=== PATIENT | female | born 1975 | race Caucasian/White ===

== ENCOUNTER 2018-01-07 20:16 | Emergency (ER) | payer SELFPAY ==
[2018-01-07 20:27] VITALS: BP 135/89
--- NOTE | 2018-01-07 20:38 | ED Physician Documentation ---
General Adult - HISTORIAN Historian: patient - HPI Stated Complaint: Noticed pain to Rt Lateral/Posterior chest near armpit Chief Complaint: General Adult Onset: days ago (3) Timing: still present Severity: moderate Further Comments: yes (Pt is a 42 yo female with a linear rash on her R flank, below her axilla and around to her back. 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 Pt has been using Triple Antibiotic on it, but this has not had an effect. She has also used topical lidocaine, but this has not helped. Pt says the pain feels like it's deep.) - ROS CONST: no problems EYES/ENT: none CVS/RESP: none GI/: none MS/SKIN/LYMPH: other (linear rash R flank) - PAST HX Past History: none Allergies/Adverse Reactions: Allergies Allergy/AdvReac Type Severity Reaction Status Date / Time Cephalosporins Allergy Verified 01/07/18 20:28 Penicillins Allergy Verified 01/07/18 20:28 tramadol Allergy Verified 01/07/18 20:28 Home Medications: Ambulatory Orders Medication Instructions Recorded NK [NK] 01/07/18 - SOCIAL HX Smoking History: non-smoker - FAMILY HX Family History: No - VITAL SIGNS Vital Signs: Vital Signs Temp Pulse Resp BP Pulse Ox 98.5 F 98 H 16 135/89 96 01/07/18 20:16 01/07/18 20:16 01/07/18 20:16 01/07/18 20:16 01/07/18 20:16 - REVIEWED ASSESSMENTS Nursing Assessment Reviewed: Yes Vitals Reviewed: Yes Progress - Progress Progress: possible shingles Rx Valacyclovir 1000 mg. Take one every 8 hrs for 7 days. General Adult Physical Exam - PHYSICAL EXAM GENERAL APPEARANCE: no distress EENT: pharynx normal NECK: normal inspection, supple RESPIRATORY: no resp distress, chest non-tender CVS: reg rate & rhythm, heart sounds normal BACK: normal inspection, no CVA tenderness SKIN: other (linear rash R flank under R axilla and around to [place] with pustules) EXTREMITIES: non-tender, normal range of motion, no evidence of injury, no edema NEURO: oriented X3, motor nml, sensation nml Discharge Clincal Impression: possible shingles Referrals: Primary Doctor,No [Primary Care Provider] - Condition: Stable Disposition: 01 HOME, SELF-CARE Decision to Admit: NO Decision Time: 20:49
== END 2018-01-07 20:40 | disposition home or self-care (01) ==
LOC: ED 20:16
DX: R21 Rash and other nonspecific skin eruption (principal)
CPT/HCPCS: 99282

== ENCOUNTER 2018-08-25 08:55 | Emergency (ER) | payer SELFPAY ==
--- NOTE | 2018-08-25 09:02 | ED Physician Documentation ---
Foot Injury - HISTORIAN Historian: patient - HPI Stated Complaint: right foot pain and toe deformity Chief Complaint: Foot Injury Onset: minutes (30) Where: home Severity: mild Context: other ("stubbed" ) Associated Symptoms:: unable to bear weight Modifying Factors:: pain on movement Further Comments: yes (She reports "stubbing" her today prior to arrival. 3rd digit on right foot with deformity. She has feeling to her foot and toe. Unable to move right 3rd digit toe.) - ROS CONST: no problems - PAST HX Past History: none Immunizations: UTD Allergies/Adverse Reactions: Allergies Allergy/AdvReac Type Severity Reaction Status Date / Time Cephalosporins Allergy Verified 08/25/18 09:23 Penicillins Allergy Verified 08/25/18 09:23 tramadol Allergy Verified 08/25/18 09:23 Home Medications: Ambulatory Orders Medication Instructions Recorded HYDROcodone /APAP 5/325 [Lodi 1 each PO Q4 #20 tablet 08/25/18 5/325] - SOCIAL HX Smoking History: non-smoker Alcohol Use: none Drug Use: none - FAMILY HX Family History: none - VITAL SIGNS Vital Signs: Vital Signs Temp Pulse Resp BP Pulse Ox 135/89 01/07/18 21:11 - REVIEWED ASSESSMENTS Nursing Assessment Reviewed: No Vitals Reviewed: No Progress - Progress Progress: 0945: Spoke with Dr Gilliam about the xray he is agreeable to seeing the pt and has requested she be placed in a surgical shoe. DG Foot Injury Physical Exam - Physical Exam General Appearance: no acute distress, alert Foot: right foot: bone tenderness (3rd digit ), deformity (3rd digit ), limited range of motion, pain, soft tissue tenderness, left foot: non-tender, normal inspection, normal range of motion, no evidence of injury, abrasions/lacerations, N/A: infection, nail injury, nodule, swelling, other (obvious deformity right foot 3rd toe - sensation is + decreased ROM cap refill +) Ankle: N/A: non-tender, normal inspection, normal range of motion, no evidence of injury, abrasions/laceration, bone tenderness, deformity, ecchymosis, joint effusion, limited range of motion, nodules, pain, soft tissue tenderness, swelling, other Gait: limited by pain Neuro: sensation nml Vascular: no vascular compromise Skin: intact, warm Resp/CVS: chest non-tender, breath sounds nml, heart sounds nml, no resp. distress, lungs clear, reg. rate & rhythm Discharge Clincal Impression: Phalanx fracture, foot Qualifiers: Encounter type: initial encounter Toe: lesser toe Fracture type: closed Phalanx: proximal Fracture alignment: nondisplaced Laterality: right Qualified Code(s): S92.514A - Nondisplaced fracture of proximal phalanx of right lesser toe(s), initial encounter for closed fracture Prescriptions: HYDROcodone /APAP 5/325 [[place] 5/325] 1 each PO Q4 #20 tablet Referrals: Primary Doctor,No [Primary Care Provider] - 2 Days Comments: 1. Use post op shoe as provided 2. Rest 3. Elevate and Ice 4. See Dr Gilliam 12.31.18 @0830 5. Return to ER for any concerns Condition: Stable Disposition: 01 HOME, SELF-CARE Decision to Admit: NO Date of Decison to Admit: 08/25/18 Decision Time: 10:02
[2018-08-25 09:12] VITALS: BP 144/91
--- NOTE | 2018-08-26 03:04 | Diagnostic Imaging Report ---
DANNY CHAVEZ [facility] [address] [facility] [address] [address] Report Submission Date: Aug 25, 2018 9:40:46 AM [employer] Patient Study Name: KBOY FRITZ Date: Aug 25, 2018 9:03:47 AM [employer] Modality Type: DX Gender: F Description: LOWER EXTREMITY : 79 Institution: [facility] Physician: DANNY CHAVEZ Examination: Plain film right foot History: PAIN IN 3RD DIGIT AFTER STUBBING TOE THIS MORNING (Hx) Findings: 3 views of the right foot demonstrates cortical lucency involving the mid aspect of the proximal phalanx 3rd digit. No other fracture or dislocation. Calcaneal spurs. No soft tissue swelling. No joint effusion. Impression: Fracture proximal phalanx 3rd digit. Electronically signed on Aug 25, 2018 9:40:46 AM [employer] by: Sukhi MOORE
== END 2018-08-25 10:40 | disposition home or self-care (01) ==
LOC: ED 08:55
DX: S92.514A Nondisplaced fracture of proximal phalanx of right lesser toe(s), initial encounter for closed fracture (principal); W22.8XXA Striking against or struck by other objects, initial encounter; Y92.009 Unspecified place in unspecified non-institutional (private) residence as the place of occurrence of the external cause
CPT/HCPCS: 29540; 73630; 99283